=== PATIENT | male | born 1985 | race Caucasian/White ===

== ENCOUNTER 2023-10-19 18:43 | Inpatient (IN) | payer OTHER ==
[2023-10-19 20:49] VITALS: BMI 18.6
[2023-10-19] MEDS ORDERED: IBUPROFEN 400 MG TABLET (FP) PO PRN (21:04)
[2023-10-19] MEDS ORDERED: BENZOCAINE/MENTHOL (CHLORASEPTIC ) LOZENGE MM PRN (21:04)
[2023-10-19] MEDS ORDERED: MAGNESIUM HYDROX 2400MG/30ML ORAL SUSPENSION 30 ML CUP PO PRN (21:04)
[2023-10-19] MEDS ORDERED: METHOCARBAMOL 500 MG TABLET PO PRN (21:04)
[2023-10-19] MEDS ORDERED: BISMUTH SUBSALICYLATE 524 MG/30 ML PO PRN (21:04)
[2023-10-19] MEDS ORDERED: MAG HYDROX/AL HYDROX/SIMETH 30 ML UNIT-DOSE CUP PO PRN (21:04)
[2023-10-19] MEDS ORDERED: ACETAMINOPHEN 325 MG TABLET (FP) PO PRN (21:04)
[2023-10-19] MEDS ORDERED: POLYETHYLENE GLYCOL (HEALTHYLAX) 3350 17 GM PACKET PO PRN (21:04)
[2023-10-19] MEDS ORDERED: guaiFENesin 600 MG TABLET.ER (FP) PO PRN (21:04)
[2023-10-19] MEDS ORDERED: LOPERAMIDE HCL 2 MG CAPSULE PO PRN (21:04)
[2023-10-19] MEDS ORDERED: NICOTINE POLACRILEX 2 MG LOZENGE BC PRN (21:04)
[2023-10-19] MEDS ORDERED: NICOTINE POLACRILEX 2 MG GUM BUC PRN (21:04)
[2023-10-19] MEDS ORDERED: BENZONATATE 200 MG CAPSULE PO PRN (21:04)
[2023-10-19] MEDS ORDERED: ONDANSETRON *ODT* 4 MG TABLET SL PRN (21:04)
[2023-10-19] MEDS ORDERED: DICYCLOMINE HCL 10 MG CAPSULE PO PRN (21:04)
[2023-10-19] MEDS ORDERED: IBUPROFEN 600 MG TABLET (FP) PO PRN (21:04)
[2023-10-19] MEDS ORDERED: chlordiazePOXIDE HCL 25 MG CAPSULE PO PRN (21:06)
[2023-10-19] MEDS ORDERED: MELATONIN 5 MG TABLETS ONE (22:50)
[2023-10-19] MEDS ORDERED: chlordiazePOXIDE HCL 25 MG CAPSULE ONE (22:50)
[2023-10-19] MEDS: THIAMINE 100 MG TABLET PO SCH (22:54)
[2023-10-19] MEDS: MELATONIN 5 MG TABLETS PO SCH (22:54)
[2023-10-19] MEDS: chlordiazePOXIDE HCL 25 MG CAPSULE PO SCH (22:59)
[2023-10-20] MEDS: PRENATAL VITAMINS W/ FOLIC ACID TABLET (FP) PO SCH (10:04)
[2023-10-20 11:19] LABS: HEMATOCRIT 42.9 % (35.4-49); HEMOGLOBIN 14.3 GM/dL (11.7-16.9); MCHC 33.4 g/dl (32.0-35.9); MEAN CELL VOLUME 95.8 fl (80-96); PLATELET COUNT 300 10^3/uL (134-434); RBC 4.48 M/mm3 (4.00-5.60); RDW 13.5 % (11.9-15.9); WHITE BLOOD COUNT 7.6 K/mm3 (4.0-10.0)
[2023-10-20 11:22] LABS: CHLORIDE 102 mmol/L (98-107); POTASSIUM 4.1 mmol/L (3.5-5.1); SODIUM 140 mmol/L (136-145)
[2023-10-20 11:42] LABS: ANION GAP 8 mmol/L (4-13); BLOOD UREA NITROGEN 3.2 mg/dL (7-18); CO2 31 mmol/L (21-32); GLUCOSE,RANDOM 79 mg/dL (74-106)
[2023-10-20 11:44] LABS: CALCIUM 9.8 mg/dL (8.5-10.1)
[2023-10-20 11:46] LABS: SGOT/AST 111 U/L (15-37); SGPT/ALT 85 U/L (13-61)
[2023-10-20 11:48] LABS: ALK PHOS 80 U/L (45-117)
[2023-10-20 11:49] LABS: ALBUMIN 3.6 g/dl (3.4-5.0)
[2023-10-20 11:52] LABS: CREATININE 0.6 mg/dL (0.55-1.3)
[2023-10-20 11:54] LABS: BILIRUBIN,TOTAL 0.8 mg/dL (0.2-1)
[2023-10-20] MEDS: levETIRAcetam 500 MG TABLET (FP) PO SCH (14:54)
[2023-10-20] MEDS: ARTIFICIAL TEARS OPHTHALMIC DROPS OU SCH (22:09)
[2023-10-21] MEDS: chlordiazePOXIDE HCL 25 MG CAPSULE PO SCH (05:24)
[2023-10-21] MEDS: LORazepam 2 MG TABLET PO SCH (17:30)
[2023-10-21] MEDS: hydrOXYzine PAMOATE 25 MG CAPSULE (FP) PO PRN (22:46)
[2023-10-22] MEDS ORDERED: chlordiazePOXIDE HCL 10 MG CAPSULE PO PRN
[2023-10-22] MEDS ORDERED: chlordiazePOXIDE HCL 10 MG CAPSULE PO SCH (05:00)
[2023-10-22] MEDS: LORazepam 1 MG TABLET PO SCH (05:20)
[2023-10-22] MEDS: LORazepam 1 MG TABLET PO PRN (14:54)
[2023-10-22 19:48] LABS: HIV INTERPRETATION NEGATIVE (NEGATIVE)
[2023-10-23] MEDS ORDERED: chlordiazePOXIDE HCL 10 MG CAPSULE PO SCH (05:00)
[2023-10-23] MEDS: LORazepam 0.5 MG TABLET PO SCH (05:20)
[2023-10-24] MEDS ORDERED: chlordiazePOXIDE HCL 10 MG CAPSULE PO ONE (05:00)
[2023-10-24] MEDS: LORazepam 0.5 MG TABLET PO ONE (05:35)
[2023-10-24 08:39] VITALS: BP 132/80; PULSE 68; RESP 17; TEMP 98.6
== END 2023-10-24 11:11 | disposition home or self-care (01) | DRG 775 ==
LOC: YASAS 18:43 → Y6N 22:25
PROVIDERS: ADMIT Allergy & Immunology; ATTEND Surgery
PROC: HZ2ZZZZ Detoxification Services for Substance Abuse Treatment (ICD-10-PCS; principal; 2023-10-19)
DX: F10.230 Alcohol dependence with withdrawal, uncomplicated (principal); F12.20 Cannabis dependence, uncomplicated; F17.210 Nicotine dependence, cigarettes, uncomplicated; F32.A Depression, unspecified; R74.01 Elevation of levels of liver transaminase levels; Z86.69 Personal history of other diseases of the nervous system and sense organs
CPT/HCPCS: 36415; 80053; 80305; 80307; 84450; 85027; 86780; 86803; 87389; 93005; 93010